=== PATIENT | female | born 1945 | race Caucasian/White ===

== ENCOUNTER → 2021-06-16 | Outpatient (CLI) | payer BC, MEDICARE ==
--- NOTE | 2021-06-16 12:26 | FL ---
EXAMINATION: Cervical and Thoracic Esophagram DATE OF EXAM: 06/16/2021 CLINICAL INDICATION: 76 year-old female K44.9 hiatal hernia. History of hiatal hernia repair in 2016. Upper abdominal pain. COMPARISON: 05/18/2015 Total Fluoroscopy Time: 2 minutes 59 seconds 58 images obtained. FINDINGS: The swallowing mechanism is normal. There is mild hypertrophy of the cricopharyngeus noted. Otherwise , hypopharyngeal anatomy is preserved. The thoracic portion has a normal course and caliber. Mild tertiary. The contractions are demonstrate d. There are blunted secondary stripping waves with mild stasis in the lower esophagus when the patie nt is upright. When the patient is prone/supine, she had to be brought upright for gravity to complet mark clear the distal esophagus. The mucosa is normal and no persistent filling defect is encountered. There is no fixed narrowing. Post surgical changes of Lynn fundoplication. No recurrent hiatal hernia is identified. We were celina ble to elicit any gastroesophageal reflux with positional and Valsalva maneuvers. IMPRESSION: 1. Mild CP muscle hypertrophy. No obstruction. 2. No recurrent hiatal hernia status post hiatal hernia repair. 3. Mild to moderate esophageal dysmotility with blunted secondary stripping waves.
== END | disposition home or self-care (01) ==
LOC: RADUSWWP 11:05
PROVIDERS: ATTEND Surgery Plastic and Reconstructive Surgery
DX: K22.4 Dyskinesia of esophagus (principal); M62.89 Other specified disorders of muscle
CPT/HCPCS: 74220

== ENCOUNTER 2021-07-23 09:49 | Day surgery (SDC) | payer MEDICARE ==
[2021-07-21 09:40] VITALS: BMI 27.3
--- NOTE | 2021-07-23 09:07 | P.GSHP ---
History of Present Illness H&P Date: 07/23/21 CHIEF COMPLAINT: GERD HISTORY OF PRESENT ILLNESS: The patient is a 76-year-old female who presents reports gastroesophageal reflux disease. Upper endoscopy was offered for further evaluation and management. PAST MEDICAL HISTORY: Please see list. PAST SURGICAL HISTORY: Please see list. MEDICATIONS: Please see list. ALLERGIES: Please see list. SOCIAL HISTORY: No illicit drug use FAMILY HISTORY: No reports of Crohn disease or ulcerative colitis. REVIEW OF ORGAN SYSTEMS: CONSTITUTIONAL: No reports of fevers or chills. GI: Denies any blood in stools or constipation. PHYSICAL EXAM: VITAL SIGNS: Stable GENERAL: Well-developed and pleasant in no acute distress. HEENT: No scleral icterus. Extraocular movements grossly intact. Moist buccal mucosa. NECK: Supple without lymphadenopathy. CHEST: Unlabored respirations. Equal bilateral excursions. CARDIOVASCULAR: Regular rate and rhythm. Distal 2+ pulses. ABDOMEN: Soft, nondistended. MUSCULOSKELETAL: No clubbing, cyanosis, or edema. ASSESSMENT: 1. Gastroesophageal reflux disease PLAN: 1. Recommend proceeding with an upper endoscopy Past Medical History Past Medical History: COPD, CVA/TIA, GERD/Reflux, Hyperlipidemia, Hypertension, Memory Impairment, Osteoarthritis (OA) Additional Past Medical History / Comment(s): epigastric pain & abd. 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 History of Any Multi-Drug Resistant Organisms: None Reported Past Surgical History: Cholecystectomy, Hernia Repair, Tubal Ligation Additional Past Surgical History / Comment(s): hemorrhoidectomy, EGD Past Anesthesia/Blood Transfusion Reactions: No Reported Reaction Smoking Status: Current every day smoker - Past Family History Daughter(s) Family Medical History: Cancer Medications and Allergies Home Medications Medication Instructions Recorded Confirmed Type Aspirin 81 mg PO DAILY 07/21/21 07/21/21 History Atorvastatin [Lipitor] 40 mg PO DAILY 07/21/21 07/21/21 History Cholecalciferol [Vitamin D3 (25 25 mcg PO DAILY 07/21/21 07/21/21 History Mcg = 1000 Iu)] Clopidogrel [Plavix] 75 mg PO DAILY 07/21/21 07/21/21 History Furosemide [Lasix] 40 mg PO DAILY 07/21/21 07/21/21 History Ipratropium-Albuterol Nebulize 3 ml INHALATION BID 07/21/21 07/21/21 History [Duoneb 0.5 mg-3 mg/3 ml Soln] Pantoprazole [Protonix] 40 mg PO DAILY 07/21/21 07/21/21 History Potassium Chloride [Klor-Con M10] 10 meq PO DAILY 07/21/21 07/21/21 History Sucralfate [Carafate] 1 gm PO BID 07/21/21 07/21/21 History lisinopriL [Zestril] 20 mg PO DAILY 07/21/21 07/21/21 History Allergies Allergy/AdvReac Type Severity Reaction Status Date / Time cyclobenzaprine HCl Allergy Intermediate Rash/Hives Verified 07/21/21 09:14 [From Flexeril]
[~2021-07-23 09:49] MED LIST: LACTATED RINGERS 1,000 ML IV SCH; LIDOCAINE 1% (10MG/ML) FOR IV START INTRADERMA PRN
[2021-07-23] MEDS ORDERED: LACTATED RINGERS 1,000 ML IV ONE ×2 (10:24)
[2021-07-23 10:35] VITALS: TEMP 97.9
[2021-07-23] MEDS ORDERED: PROPOFOL 10 MG/ML 20 ML VIAL IV ONE (11:05)
[2021-07-23] MEDS ORDERED: LIDOCAINE 1% INJ 10MG/ML (20 ML MDV) ONE (11:05)
[2021-07-23 11:35] VITALS: RESP 16
[2021-07-23 11:51] VITALS: BP 105/70; PULSE 82
--- NOTE | 2021-07-23 11:56 | P.PCN ---
Date of Procedure: 07/23/21 Description of Procedure: PREOPERATIVE DIAGNOSIS: Gastroesophageal reflux disease. History of Lynn fundoplasty Epigastric abdominal pain Tobacco abuse disorder POSTOPERATIVE DIAGNOSIS: Gastritis History of Lynn fundoplasty Duodenitis OPERATION: Esophagogastroduodenoscopy with biopsies along antrum and duodenum SURGEON: Yumi Hernandez MD ANESTHESIA: MAC. INDICATIONS: The patient is a 76-year-old female who presents with reflux disease. Benefits and risks of the procedure were described. Informed consent was obtained. DESCRIPTION: The patient was brought into the endoscopy suite and laid in the left lateral decubitus position. An Olympus gastroscope was passed along the posterior oropha rynx down to the distal esophagus where the squamocolumnar junction was encountered at 40 cm from the incisors. The stomach was entered and no bile reflux was found. Additional findings are listed below. Biopsies with cold forceps were obtained of the antrum. The first through third portion of the duodenum was examined Retroflexion of the scope confirmed Hill grade 1 lower esophageal valve. The squamocolumnar junction demonstrated LA grade A erosive esophagitis. The stomach was desufflated. The patient tolerated the procedure well. FINDINGS: Squamocolumnar junction 40 cm from the incisors. Diaphragmatic hiatus at 40 cm. Intact Lynn fundoplasty without recurrent Hill grade 1 lower esophageal valve. LA grade A erosive esophagitis. Duodenitis. Chronic gastritis RECOMMENDATIONS: Tobacco cessation and counseling advised due to gastritis and epigastric abdominal pain Upper endoscopy as needed Plan - Discharge Summary Discharge Rx Participant: No New Discharge Prescriptions: Continue lisinopriL [Zestril] 20 mg PO DAILY Atorvastatin [Lipitor] 40 mg PO DAILY Aspirin 81 mg PO DAILY Ipratropium-Albuterol Nebulize [Duoneb 0.5 mg-3 mg/3 ml Soln] 3 ml INHALATION BID Potassium Chloride [Klor-Con M10] 10 meq PO DAILY Sucralfate [Carafate] 1 gm PO BID Pantoprazole [Protonix] 40 mg PO DAILY Furosemide [Lasix] 40 mg PO DAILY Clopidogrel [Plavix] 75 mg PO DAILY Cholecalciferol [Vitamin D3 (25 Mcg = 1000 Iu)] 25 mcg PO DAILY Discharge Medication List Aspirin 81 mg PO DAILY 07/21/21 [History] Atorvastatin [Lipitor] 40 mg PO DAILY 07/21/21 [History] Cholecalciferol [Vitamin D3 (25 Mcg = 1000 Iu)] 25 mcg PO DAILY 07/21/21 [History] Clopidogrel [Plavix] 75 mg PO DAILY 07/21/21 [History] Furosemide [Lasix] 40 mg PO DAILY 07/21/21 [History] Ipratropium-Albuterol Nebulize [Duoneb 0.5 mg-3 mg/3 ml Soln] 3 ml INHALATION BID 07/21/21 [History] Pantoprazole [Protonix] 40 mg PO DAILY 07/21/21 [History] Potassium Chloride [Klor-Con M10] 10 meq PO DAILY 07/21/21 [History] Sucralfate [Carafate] 1 gm PO BID 07/21/21 [History] lisinopriL [Zestril] 20 mg PO DAILY 07/21/21 [History] Follow up Appointment(s)/Referral(s): Yumi Hernandez MD [STAFF PHYSICIAN] - 08/12/21 Patient Instructions/Handouts: Gastritis (DC), How to Stop Smoking (GEN), Duodenitis (DC) Activity/Diet/Wound Care/Special Instructions: Stop smoking Discharge Disposition: HOME SELF-CARE
== END 2021-07-23 12:05 | disposition home or self-care (01) ==
LOC: ORWHC2ENDO 09:49
PROVIDERS: ATTEND Surgery Plastic and Reconstructive Surgery
DX: K21.00 Gastro-esophageal reflux disease with esophagitis, without bleeding (principal); K29.50 Unspecified chronic gastritis without bleeding; K31.A11 Gastric intestinal metaplasia without dysplasia, involving the antrum; K29.80 Duodenitis without bleeding; J44.9 Chronic obstructive pulmonary disease, unspecified; E78.5 Hyperlipidemia, unspecified; I10 Essential (primary) hypertension; M19.90 Unspecified osteoarthritis, unspecified site; R41.3 Other amnesia; I69.398 Other sequelae of cerebral infarction; H53.8 Other visual disturbances; R20.0 Anesthesia of skin; F17.200 Nicotine dependence, unspecified, uncomplicated; Z79.82 Long term (current) use of aspirin; Z79.899 Other long term (current) drug therapy; Z79.02 Long term (current) use of antithrombotics/antiplatelets; Z88.8 Allergy status to other drugs, medicaments and biological substances; Z90.49 Acquired absence of other specified parts of digestive tract; Z98.890 Other specified postprocedural states; Z98.51 Tubal ligation status; Z80.9 Family history of malignant neoplasm, unspecified
CPT/HCPCS: 88305; 43239; J2001; J2704

== ENCOUNTER → 2022-11-19 | Outpatient (CLI) | payer MEDICARE, BC ==
--- NOTE | 2022-11-19 13:40 | CTL ---
EXAMINATION TYPE: CT Low Dose Lung DATE OF EXAM ORDERED: 11/19/2022 HISTORY: Z87.891 personal hx tobacco use. Current smoker, 60 pack year history. Lung cancer screening CT DLP: 97.[address] CTDI: 2.7 mGy Automated exposure control for dose reduction was used. SCREENING VISIT: First screening visit COMPARISON: Chest radiograph 05/17/2015 TECHNIQUE: Low dose computed tomography scan was performed through the chest at 1 mm thick sections a nd reconstructed images in multiple planes at 1 mm and [address] DIAGNOSTIC QUALITY: Satisfactory FINDINGS: LUNG NODULES: Scattered pulmonary nodules example including a anterior right upper lobe 2.7 mm pulmon young nodule (series 6, image 17), a 5.4 mm right midlung pulmonary nodule (series 6, image 24), a righ t lower lobe 6.2 mm pulmonary nodule (series 6, image 33), and a 2.3 mm right lower lobe pulmonary no dule (series 6, image 44). LUNGS: COPD: Severity: Mild Fibrosis: Severity: Mild Lymph nodes: None Other findings: None RIGHT PLEURAL SPACE: Effusion: None Calcification: None Thickening: None Pneumothorax: None LEFT PLEURAL SPACE: Effusion: None Calcification: None Thickening: None Pneumothorax: None HEART: Heart Size: Normal Coronary Calcification: Small Pericardial Effusion: None OTHER FINDINGS: Upper abdomen: Postcholecystectomy changes. Bony thorax: No acute osseous adenopathy. Mild multilevel degenerative disc disease of the thoracic s pine. Supraclavicular region: None Other: None IMPRESSION: 1. Scattered pulmonary nodules measuring up to 6.2 mm. 2. Mild emphysematous and pulmonary fibrotic changes. CT LUNG RAD AND CT CHEST RECOMMENDATION: Lung-Rad 3 Probably Benign: 6 month follow-up LDCT. S Modifier (other clinically significant findings): None
== END | disposition home or self-care (01) ==
LOC: RADCTMAIN 13:10
PROVIDERS: ATTEND Family Medicine
DX: Z12.2 Encounter for screening for malignant neoplasm of respiratory organs (principal); R91.8 Other nonspecific abnormal finding of lung field; J43.9 Emphysema, unspecified; J84.10 Pulmonary fibrosis, unspecified; I10 Essential (primary) hypertension; F17.210 Nicotine dependence, cigarettes, uncomplicated; Z90.49 Acquired absence of other specified parts of digestive tract
CPT/HCPCS: 71271

== ENCOUNTER → 2024-11-02 | Outpatient (CLI) | payer MEDICARE, BC ==
--- NOTE | 2024-11-03 09:01 | PE ---
EXAMINATION TYPE: PET CT fusion skull to thigh DATE OF EXAM: 11/02/2024 CLINICAL INDICATION:Female, 79 years old with history of R91.1 Lung nodule; TECHNIQUE: Following the intravenous administration of 7.92 mCi of F-18 FDG, whole body images are performed from the skull base to the Mid thigh. Images are reviewed on the computer in the coronal, axial, and sagittal planes. Reconstructed rotating images are created on independent workstation and reviewed on the computer. A non-contrast CT is performed in conjunction with the PET scan. Glucose level 81 mg/dL CT DLP: 1153 mGycm, Automated exposure control for dose reduction was used. COMPARISON: CT 11/19/2022, PET/CT None, MRI: None FINDINGS: Mediastinal SUV mean is 2.7. Hepatic parenchyma SUV mean is 3.58. SKULL BASE AND NECK: No suspicious radiotracer activity. CHEST, MEDIASTINUM, AND HILAR REGION: No suspicious radiotracer activity. Scattered small pulmonary nodules without increased uptake including left lower lobe 3 mm, right midd le lobe 3 mm. Scattered streaky atelectasis. Right middle lobe consolidation along the heart border c ompatible with atelectasis. ABDOMEN AND PELVIS: No suspicious radiotracer activity. MUSCULOSKELETAL STRUCTURES: No suspicious radiotracer activity. OTHER CT: Bilaterally aphakia. Atherosclerosis of the arterial vasculature including the coronary art eries. The gallbladder surgically absent. Scattered colonic diverticula. Review posterior fat-contain ing Bochdalek hernia. [id number] emphysema changes. IMPRESSION: No suspicious radiotracer activity. No clinically significant pulmonary nodules identified. No recent prior available for comparison. [facility], , 11/03/2024 8:59 AM
== END | disposition home or self-care (01) ==
LOC: RADPETMAIN 10:55
PROVIDERS: ATTEND Family Medicine
DX: R91.1 Solitary pulmonary nodule (principal)
CPT/HCPCS: 78815; A9552